=== PATIENT | male | born 1935 | race Caucasian/White ===

== ENCOUNTER 2020-11-14 15:16 | Inpatient (IN) | payer MEDICARE, BC ==
[~2020-11-14] VITALS: Ht 172.7 cm; Wt 81.6 kg
--- NOTE | 2020-11-14 15:20 | NUR ---
BIB [facility], THERE ARE NO ER BEDS AVAILABLE AT THIS TIME. PT IS IN THE EMS GURNEY IN THE HALLWAY.
[2020-11-14] MEDS ORDERED: TAMS-3 PO (15:28)
[2020-11-14] MEDS ORDERED: TELM1TAB6 PO (15:28)
[2020-11-14] MEDS ORDERED: CLOP75TA15 PO (15:28)
[2020-11-14] MEDS ORDERED: METF-440 PO (15:28)
[2020-11-14] MEDS ORDERED: LEVO75TA7 PO (15:28)
[2020-11-14] MEDS ORDERED: HYDR-894 PO (15:28)
[2020-11-14] MEDS ORDERED: CARV12.52 PO (15:28)
[2020-11-14] MEDS ORDERED: ISOS60TA4 PO (15:28)
[2020-11-14] MEDS ORDERED: PRESERVISION (15:28)
[2020-11-14] MEDS ORDERED: ROSU20TA32 PO (15:31)
[2020-11-14] MEDS ORDERED: DONE5TAB34 PO (15:31)
[2020-11-14] MEDS ORDERED: LORAZEPAM 2 MG/1 ML VIAL ONE (15:57)
[2020-11-14 16:23] LABS: HEMATOCRIT 32.1 % (36.7-47.1); HEMOGLOBIN 10.8 g/dL (12.5-16.3); LYMPHOCYTES # (AUTO) 0.2 K/uL (20.0-40.0); LYMPHOCYTES % (AUTO) 1.5 % (20.5-51.5); MEAN CORPUSCULAR HEMOGLOBIN 29.3 uug (23.8-33.4); MEAN CORPUSCULAR HGB CONC 34 g/dL (32.5-36.3); MEAN CORPUSCULAR VOLUME 87.3 fL (73.0-96.2); MONOCYTES # (AUTO) 0.2 K/uL (2.0-10.0); MONOCYTES % (AUTO) 1.4 % (0.0-11.0); NEUTROPHILS # (AUTO) 13.9 K/uL (1.8-8.9); NEUTROPHILS % (AUTO) 97.1 % (38.5-71.5); PLATELET COUNT (AUTO) 250 K/uL (152-348); RED BLOOD CELL COUNT(AUTO) 3.68 MIL/uL (4.06-5.63); WHITE BLOOD COUNT (AUTO) 14.4 K/uL (3.6-10.2)
[2020-11-14 16:31] LABS: CARBON DIOXIDE 25 mmol/L (21-32); CHLORIDE 102 mmol/L (98-107); CREATININE 1.4 mg/dL (0.6-1.3); GLUCOSE 129 mg/dL (74-106); POTASSIUM 3.2 mmol/L (3.5-5.1); UREA NITROGEN, BLOOD 36 mg/dL (7-18)
[2020-11-14] MEDS ORDERED: DEXAMETHASONE SOD PHOSPHATE 4 MG INJ IV ONE (16:45)
--- NOTE | 2020-11-14 16:55 | NUR ---
Son, Trent and granddaughter, Jelly: [phone] (okay to release info per pt). NKA, on dexamethasone, took dose today, not on A/Bx at home. Family requests pt be put on "remdesivir."
[2020-11-14 16:58] LABS: ALANINE AMINOTRANSFERASE 124 U/L (16-63); ALKALINE PHOSPHATASE 56 U/L (50-136); ASPARTATE AMINOTRANSFERASE 85 U/L (15-37); FERRITIN 788 ng/mL (26-388); TOTAL PROTEIN, SERUM 6.6 g/dL (6.4-8.2)
[2020-11-14] MEDS ORDERED: PIPERACILLIN SODIUM/TAZOBACTAM 3.375 G in IV DEXTROSE 5% 50 ML IV ONE (17:00)
[2020-11-14] MEDS ORDERED: POTASSIUM CHLORIDE 20 MEQ TAB.PRT.SR PO ONE ×2 (17:00→17:30)
[2020-11-14] MEDS ORDERED: FUROSEMIDE 20 MG/2 ML VIAL IV ONE (17:15)
[2020-11-14] MEDS ORDERED: ASPIRIN 81 MG TAB.CHEW PO ONE (17:45)
[2020-11-14] MEDS ORDERED: DEXAMETHASONE SOD PHOSPHATE 4 MG INJ ONE ×2 (18:34→21:11)
[2020-11-14] MEDS ORDERED: ASPIRIN 81 MG TAB.CHEW ONE (18:34)
[2020-11-14] MEDS ORDERED: FUROSEMIDE 20 MG/2 ML VIAL ONE ×3 (18:35→22:30)
[2020-11-14] MEDS ORDERED: PIPERACILLIN/TAZOBACTAM/D5W 50 ML IV ONE ×2 (18:36→21:11)
--- NOTE | 2020-11-14 19:05 | NUR ---
K-dur 20 meq not given, duplicate of earlier K-dur order for 40 meq.
[2020-11-14] MEDS ORDERED: DONEPEZIL 5 MG TABLET ONE (21:10)
[2020-11-14] MEDS ORDERED: METFORMIN HCL 500 MG TABLET ONE (21:11)
[2020-11-14] MEDS ORDERED: POTASSIUM CHLORIDE 20 MEQ TAB.PRT.SR ONE (21:11)
[2020-11-14] MEDS: DONEPEZIL 5 MG TABLET PO SCH (21:18)
[2020-11-14] MEDS: METFORMIN HCL 500 MG TABLET PO SCH (21:27)
[2020-11-14] MEDS ORDERED: ENOXAPARIN SODIUM 30 MG/0.3 ML DISP.SYRIN SUBCUT ONE (22:00)
[2020-11-14] MEDS: PIPERACILLIN SODIUM/TAZOBACTAM 4.5 G in IV DEXTROSE 5% 50 ML IV SCH ×2 (22:08→22:45)
--- NOTE | 2020-11-14 22:47 | NUR ---
PHARMACY NOTE; THE 4.5 ZOSYN IVPB WAS NOT ADMINISTERED, THE 3.375 ZOSYN IVPB WAS ADMINISTERED. I MISTAKENLY DOCUMENTED ON THE 4.5 GM ZOSYN IVPB.
--- NOTE | 2020-11-15 01:30 | NUR ---
SBAR REPORT TO TOMMY RN-3RD FLOOR. MRSA ORDERED AND SENT. BELONGINGS LIST COMPLETED.
--- NOTE | 2020-11-15 01:36 | NUR ---
received report from Mat in ER. awaiting patient.
[2020-11-15 02:28] VITALS: BP 165/76
--- NOTE | 2020-11-15 02:30 | NUR ---
faxed nursing catalyst supervisor for abx
--- NOTE | 2020-11-15 02:32 | NUR ---
patient received from ER. no s/s of acute distress noted. v/s stable except BP. Dr. Jimbo Carrillo contacted for BP at 165/76. no new orders per MD. isolation precaution for COVID +. on 4L NC. NSR of tele monitor at this time. will continue to monitor and assess throughout the night.
[2020-11-15] MEDS ORDERED: PIPERACILLIN SODIUM/TAZOBACTAM 3.375 G in IV DEXTROSE 5% 50 ML IV ONE (04:00)
[2020-11-15] MEDS ORDERED: PIPERACILLIN/TAZOBACTAM/D5W 50 ML IV ONE (04:36)
[2020-11-15] MEDS: ACETAMINOPHEN 325 MG TABLET PO PRN (05:06)
--- NOTE | 2020-11-15 05:06 | NUR ---
patient with low grade fever. tylenol administered. will follow up.
[2020-11-15 05:10] VITALS: BP 157/69
[2020-11-15] MEDS: LEVOTHYROXINE SODIUM 75 MCG TABLET PO SCH (06:18)
[2020-11-15 08:31] LABS: BASOPHILS % (AUTO) 0.1 % (0.0-2.0); HEMATOCRIT 33.8 % (36.7-47.1); HEMOGLOBIN 11.6 g/dL (12.5-16.3); LYMPHOCYTES # (AUTO) 0.2 K/uL (20.0-40.0); LYMPHOCYTES % (AUTO) 1.2 % (20.5-51.5); MEAN CORPUSCULAR HEMOGLOBIN 29.7 uug (23.8-33.4); MEAN CORPUSCULAR HGB CONC 34 g/dL (32.5-36.3); MEAN CORPUSCULAR VOLUME 86.9 fL (73.0-96.2); MONOCYTES # (AUTO) 0.3 K/uL (2.0-10.0); MONOCYTES % (AUTO) 1.7 % (0.0-11.0); NEUTROPHILS # (AUTO) 15.5 K/uL (1.8-8.9); PLATELET COUNT (AUTO) 252 K/uL (152-348)
[2020-11-15 09:10] LABS: ALANINE AMINOTRANSFERASE 123 U/L (16-63); ALKALINE PHOSPHATASE 60 U/L (50-136); ASPARTATE AMINOTRANSFERASE 74 U/L (15-37); CARBON DIOXIDE 25 mmol/L (21-32); CHLORIDE 105 mmol/L (98-107); CREATININE 1.6 mg/dL (0.6-1.3); GLUCOSE 198 mg/dL (74-106); POTASSIUM 3.4 mmol/L (3.5-5.1); TOTAL PROTEIN, SERUM 6.9 g/dL (6.4-8.2); UREA NITROGEN, BLOOD 40 mg/dL (7-18)
[2020-11-15] MEDS: DEXAMETHASONE SOD PHOSPHATE 4 MG INJ IV SCH (09:33)
[2020-11-15] MEDS: CARVEDILOL 12.5 MG TABLET PO SCH ×2 (09:33→18:03)
[2020-11-15] MEDS: hydrALAZINE HCL 25 MG TABLET PO SCH ×3 (09:33→18:03)
[2020-11-15] MEDS: TAMSULOSIN HCL 0.4 MG CAP.SR.24H PO SCH ×2 (09:33→18:04)
[2020-11-15] MEDS: CLOPIDOGREL 75 MG TABLET PO SCH (09:34)
[2020-11-15] MEDS: ISOSORBIDE MONONITRATE 60 MG TAB.SR.24H PO SCH (09:34)
[2020-11-15 11:51] VITALS: BP 121/57
[2020-11-15] MEDS: PIPERACILLIN SODIUM/TAZOBACTAM 3.37 G in IV DEXTROSE 5% 100 ML IV SCH ×2 (14:08→20:08)
[2020-11-15 14:54] VITALS: BP 128/60
[2020-11-15] MEDS: DONEPEZIL 5 MG TABLET PO SCH (18:04)
[2020-11-15] MEDS: METFORMIN HCL 500 MG TABLET PO SCH (18:04)
--- NOTE | 2020-11-15 19:30 | NUR ---
Patient was just discharged to his home yesterday from [facility] and readmitted today due to worsening SOB and syncope. He lives locally with his in a single level home with few steps to entrance . Per daughter Jelly Currie [phone], patient was usually ambulatory without assistive device and independent with adl's. Recently has progressive weakness and declined in his mobility and functioning for the past two weeks due to poor endurance. He has no DME , currently on service with [employer] [phone]. Discussed dc planning options - home vs SNF , Jelly states she will discuss both options among their family and will let case mgt know of their decision. Addendum: 11/15/20 at 1945 by PETR BOLANOS CMG Amended: Links added.
[2020-11-15 20:00] VITALS: BP 147/61
[2020-11-16] VITALS: BP 148/63
[2020-11-16 04:00] VITALS: BP 156/91
[2020-11-16] MEDS: PIPERACILLIN SODIUM/TAZOBACTAM 3.37 G in IV DEXTROSE 5% 100 ML IV SCH (05:06)
[2020-11-16] MEDS: LEVOTHYROXINE SODIUM 75 MCG TABLET PO SCH (06:19)
[2020-11-16 08:00] VITALS: BP 121/73
[2020-11-16] MEDS: DEXAMETHASONE SOD PHOSPHATE 4 MG INJ IV SCH (09:49)
[2020-11-16] MEDS: CLOPIDOGREL 75 MG TABLET PO SCH (09:49)
[2020-11-16] MEDS: ISOSORBIDE MONONITRATE 60 MG TAB.SR.24H PO SCH (09:50)
[2020-11-16] MEDS: CARVEDILOL 12.5 MG TABLET PO SCH ×2 (09:50→18:07)
[2020-11-16] MEDS: hydrALAZINE HCL 25 MG TABLET PO SCH ×3 (09:51→18:07)
[2020-11-16] MEDS: TAMSULOSIN HCL 0.4 MG CAP.SR.24H PO SCH ×2 (09:51→18:04)
[2020-11-16] MEDS: AZITHROMYCIN IV 500 MG in IV DEXTROSE 5% 250 ML IV SCH (10:22)
[2020-11-16] MEDS: CEFTRIAXONE 1 G in IV DEXTROSE 5% 50 ML IV SCH (11:47)
[2020-11-16 12:00] VITALS: BP 113/63
--- NOTE | 2020-11-16 12:00 | NUR ---
On O2 @ 4L NC saturating 86-87%, put up on 6L but still saturating 88%. Placed on non-rebreather 10L saturating 93% but denied SOB at this time
[2020-11-16 12:48] LABS: *BILIRUBIN,URIN NEGATIVE (NEGATIVE); *BLOOD, URINE 2+ (NEGATIVE); *CLARITY,URINE CLEAR (CLEAR); *COLOR,URINE YELLOW (YELLOW); *KETONES,URINE NEGATIVE (NEGATIVE); LEUKOCYTE ESTERASE ,URINE NEGATIVE (NEGATIVE); NITRITE, URINE NEGATIVE (NEGATIVE); UGLUCOSE NEGATIVE (NEGATIVE)
[2020-11-16 12:57] LABS: *CREATININE,URINE 109.4 mg/dL (30-125); *URINE TOTAL PROTEIN RANDOM 203.1 mg/dL (<150/24HR)
[2020-11-16 16:00] VITALS: BP 151/64
[2020-11-16] MEDS: DONEPEZIL 5 MG TABLET PO SCH (18:04)
[2020-11-16 18:56] LABS: BACTERIA,URINE RARE /HPF (NONE SEEN); SQUAMOUS EPITHELIAL CELL,UR FEW /HPF (NONE SEEN); URIC ACID CRYSTALS,URINE FEW /HPF (NONE SEEN); URINE AMORPHOUS URATE FEW /HPF; WBC,URINE 0-3 /HPF (0-3)
--- NOTE | 2020-11-16 19:09 | NUR ---
Patient stable throughout shift. On 10L non-rebreather mask, denied SOB or distress at this time. Safety precaution in place.
[2020-11-16 20:00] VITALS: BP 151/57
--- NOTE | 2020-11-17 00:03 | NUR ---
Received patient awake alert and oriented x2-3 with periods of forgetfulness at times. No acute distress noted. No respiratory distress noted. Contact isolation maintained. Covid (+) On 100% non rebreather mask, pulse ox 93%. Needs attended. IVF's infusing well. Patient has left pacemaker. On IV ABT given as scheduled times. Continent of bowel and bladder. No BM noted this shift. Will monitor patient. Kept comfortable.
[2020-11-17 04:00] VITALS: BP 168/82
[2020-11-17] MEDS: LEVOTHYROXINE SODIUM 75 MCG TABLET PO SCH (06:26)
--- NOTE | 2020-11-17 06:47 | NUR ---
End of shift notes: Quiet night. In no respiratory distress. VSS. On continous non-rebreather mask. Voiding well. No complaints presented during shift. All needs attended and met.
[2020-11-17 06:56] LABS: BASOPHILS % (AUTO) 0.1 % (0.0-2.0); HEMATOCRIT 33.8 % (36.7-47.1); HEMOGLOBIN 11.7 g/dL (12.5-16.3); LYMPHOCYTES # (AUTO) 0.3 K/uL (20.0-40.0); LYMPHOCYTES % (AUTO) 2.3 % (20.5-51.5); MEAN CORPUSCULAR HEMOGLOBIN 29.8 uug (23.8-33.4); MEAN CORPUSCULAR HGB CONC 35 g/dL (32.5-36.3); MEAN CORPUSCULAR VOLUME 86.1 fL (73.0-96.2); MONOCYTES # (AUTO) 0.5 K/uL (2.0-10.0); MONOCYTES % (AUTO) 4.3 % (0.0-11.0); NEUTROPHILS # (AUTO) 10.7 K/uL (1.8-8.9); NEUTROPHILS % (AUTO) 93.3 % (38.5-71.5); PLATELET COUNT (AUTO) 307 K/uL (152-348); RED BLOOD CELL COUNT(AUTO) 3.92 MIL/uL (4.06-5.63); WHITE BLOOD COUNT (AUTO) 11.5 K/uL (3.6-10.2)
[2020-11-17 07:44] LABS: ALANINE AMINOTRANSFERASE 281 U/L (16-63); ALKALINE PHOSPHATASE 63 U/L (50-136); ASPARTATE AMINOTRANSFERASE 199 U/L (15-37); BILIRUBIN,TOTAL 0.7 mg/dL (0.2-1.0); CARBON DIOXIDE 28 mmol/L (21-32); CHLORIDE 103 mmol/L (98-107); CREATININE 1.4 mg/dL (0.6-1.3); FERRITIN 1974 ng/mL (26-388); GLUCOSE 183 mg/dL (74-106); LACTATE DEHYDROGENASE 614 U/L (85-227); PHOSPHOROUS 3.3 mg/dL (2.5-4.9); POTASSIUM 3.3 mmol/L (3.5-5.1); TOTAL PROTEIN, SERUM 6.7 g/dL (6.4-8.2); UREA NITROGEN, BLOOD 41 mg/dL (7-18)
[2020-11-17 07:59] LABS: CREATINE KINASE, TOTAL 94 U/L (39-308)
[2020-11-17] MEDS ORDERED: POTASSIUM CHLORIDE 20 MEQ TAB.PRT.SR PO ONE (09:30)
[2020-11-17] MEDS: DEXAMETHASONE SOD PHOSPHATE 4 MG INJ IV SCH (09:32)
[2020-11-17] MEDS: hydrALAZINE HCL 25 MG TABLET PO SCH ×3 (09:33→16:56)
[2020-11-17] MEDS: CLOPIDOGREL 75 MG TABLET PO SCH (09:33)
[2020-11-17] MEDS: CARVEDILOL 12.5 MG TABLET PO SCH ×2 (09:33→16:56)
[2020-11-17] MEDS: ISOSORBIDE MONONITRATE 60 MG TAB.SR.24H PO SCH (09:34)
[2020-11-17] MEDS: AZITHROMYCIN IV 500 MG in IV DEXTROSE 5% 250 ML IV SCH (10:36)
[2020-11-17] MEDS: CEFTRIAXONE 1 G in IV DEXTROSE 5% 50 ML IV SCH (12:11)
[2020-11-17 12:14] VITALS: BP 124/58
[2020-11-17 14:28] LABS: THYROID STIMULATING HORMONE 0.164 mIU/mL (0.358-3.740)
[2020-11-17 16:00] VITALS: BP 126/63
[2020-11-17] MEDS: DONEPEZIL 5 MG TABLET PO SCH (17:03)
[2020-11-17 20:00] VITALS: BP 128/58
--- NOTE | 2020-11-17 20:16 | NUR ---
patient in bed AOx, on non rebreather 10L saturating 91-92%, denied SOB or any distress. On 5-6L NC, saturating 84-85%. Had a mucoid, white cloudy bowel movement, sent to lab for cdiff per MD. Safety precaution in place
[2020-11-17] MEDS: TAMSULOSIN HCL 0.4 MG CAP.SR.24H PO SCH (21:27)
--- NOTE | 2020-11-17 21:57 | NUR ---
patient placed on 15L non rebreather mask saturation at 92% at this time. aaox3. able to state name, , time, president and verbalize needs at this time. all medications administered without associated side effects. IV in tact and patent. safety precautions provided. bed in lowest position, side rails up x2, bed alarm on. will continue to monitor and assess throughout the night.
--- NOTE | 2020-11-17 21:57 | NUR ---
Rn - Patient was received a/ox3, verbally responsive, V/S stable except SPO2 @ 88% on 6/liter oxygen none rebreather mask. Increased oxygen to 10/liter and noted increased to 92%. No visual sign of difficulty breathing and calm. On continue Atb therapy Rocephin 1gm with Dextrose 5% on 50ml every 24hrs and Zithromax IV 500mg q/24hrs. Administered routine due medication and tolerated well. Will continue close monitor and anticipate changes.
[2020-11-18 04:00] VITALS: BP 177/80
--- NOTE | 2020-11-18 04:20 | NUR ---
Priscilla islas np ordered clonidine 0.1 mg q8h for SBP >160 patient BP currently >160. will carry out and follow up with patient.
[2020-11-18] MEDS ORDERED: CLONIDINE HCL 0.1 MG TABLET PO PRN (04:30)
--- NOTE | 2020-11-18 05:25 | NUR ---
patient resting comfortably. aaox3. able to verbalize needs at this time. on 15L nonrebreather. NSR on tele monitor. safety precautions provided. bed in lowest position, side rails up x2, and bed alarm on. urinal next to bed side. all needs med and medications administered without any ASE. will continue to monitor and assess until morning endorsement.
[2020-11-18] MEDS: LEVOTHYROXINE SODIUM 50 MCG TABLET PO SCH (06:07)
--- NOTE | 2020-11-18 08:00 | NUR ---
Awake, alert, oriented x 3, on moderate high back rest, off O2 with O2 sat of 85%. Placed on O2 4-5l/NC with O2 sat of 92-94%
[2020-11-18] MEDS: DEXAMETHASONE SOD PHOSPHATE 4 MG INJ IV SCH (09:50)
[2020-11-18] MEDS: hydrALAZINE HCL 25 MG TABLET PO SCH ×3 (09:51→17:40)
[2020-11-18] MEDS: CLOPIDOGREL 75 MG TABLET PO SCH (09:51)
[2020-11-18] MEDS: CARVEDILOL 12.5 MG TABLET PO SCH ×2 (09:51→17:40)
[2020-11-18] MEDS: ISOSORBIDE MONONITRATE 60 MG TAB.SR.24H PO SCH (09:51)
[2020-11-18] MEDS: AZITHROMYCIN IV 500 MG in IV DEXTROSE 5% 250 ML IV SCH (09:52)
[2020-11-18 11:53] VITALS: BP 113/71
[2020-11-18] MEDS: CEFTRIAXONE 1 G in IV DEXTROSE 5% 50 ML IV SCH (12:16)
--- NOTE | 2020-11-18 14:25 | NUR ---
O2 sat of 85% on 5L/NC, placed on 10L/Mask with O2 sat of 94%
[2020-11-18 15:41] VITALS: BP 155/76
--- NOTE | 2020-11-18 16:37 | NUR ---
Patient removing mask with O2 sat of 84%, placed back on 10L/mask and reminded not to remove it.
[2020-11-18 17:27] LABS: A/G RATIO 0.6 (0.7-1.7); ALBUMIN 2.3 g/dL (2.9-4.4); ALPHA-1-GLOBULIN 0.4 g/dL (0.0-0.4); ALPHA-2-GLOBULIN 1.4 g/dL (0.4-1.0); GAMMA GLOBULIN 0.8 g/dL (0.4-1.8); GLOBULIN, TOTAL 3.6 g/dL (2.2-3.9); M-SPIKE Not Observed g/dL (Not Observed)
[2020-11-18] MEDS: DONEPEZIL 5 MG TABLET PO SCH (17:40)
--- NOTE | 2020-11-18 18:26 | NUR ---
Placed back on 10L/mask after dinner. Repositioned comfortably
[2020-11-18] MEDS: TAMSULOSIN HCL 0.4 MG CAP.SR.24H PO SCH ×2 (20:59→21:31)
[2020-11-18 21:42] VITALS: BP 158/75
[2020-11-18] MEDS: hydrALAZINE HCL 25 MG TABLET PO PRN (21:54)
[2020-11-19] MEDS: hydrALAZINE HCL 25 MG TABLET PO PRN (05:38)
[2020-11-19 06:00] VITALS: BP 180/83
[2020-11-19] MEDS: LEVOTHYROXINE SODIUM 50 MCG TABLET PO SCH (06:12)
--- NOTE | 2020-11-19 06:29 | NUR ---
patient aaox3. pleasant to speak with and intermittently sleeping throughout the night. on mask at 10L sat at 94%. safety precautions provided. all needs met. will continue to monitor and endorse to morning shift. patient kept NPO since midnight for Liver US. will continue to monitor and assess until morning endorsement
[2020-11-19 08:37] LABS: BASOPHILS % (AUTO) 0.1 % (0.0-2.0); EOSINOPHILS % (AUTO) 0.1 % (0.0-7.0); HEMATOCRIT 35.1 % (36.7-47.1); HEMOGLOBIN 12.3 g/dL (12.5-16.3); LYMPHOCYTES # (AUTO) 0.4 K/uL (20.0-40.0); LYMPHOCYTES % (AUTO) 4.4 % (20.5-51.5); MEAN CORPUSCULAR HEMOGLOBIN 30.3 uug (23.8-33.4); MEAN CORPUSCULAR HGB CONC 35 g/dL (32.5-36.3); MEAN CORPUSCULAR VOLUME 86.6 fL (73.0-96.2); MONOCYTES # (AUTO) 0.4 K/uL (2.0-10.0); MONOCYTES % (AUTO) 4.2 % (0.0-11.0); NEUTROPHILS # (AUTO) 8.7 K/uL (1.8-8.9); NEUTROPHILS % (AUTO) 91.2 % (38.5-71.5); PLATELET COUNT (AUTO) 305 K/uL (152-348); RED BLOOD CELL COUNT(AUTO) 4.05 MIL/uL (4.06-5.63); WHITE BLOOD COUNT (AUTO) 9.6 K/uL (3.6-10.2)
[2020-11-19 09:24] LABS: BILIRUBIN,TOTAL 0.4 mg/dL (0.2-1.0); CREATININE 1.3 mg/dL (0.6-1.3); MAGNESIUM 2.8 mg/dL (1.8-2.4); PHOSPHOROUS 3.1 mg/dL (2.5-4.9); POTASSIUM 3.4 mmol/L (3.5-5.1); TOTAL PROTEIN, SERUM 6.3 g/dL (6.4-8.2)
[2020-11-19] MEDS: CARVEDILOL 12.5 MG TABLET PO SCH ×2 (10:03→17:39)
[2020-11-19] MEDS: DEXAMETHASONE SOD PHOSPHATE 4 MG INJ IV SCH (10:03)
[2020-11-19] MEDS: hydrALAZINE HCL 25 MG TABLET PO SCH ×3 (10:04→17:40)
[2020-11-19] MEDS: CLOPIDOGREL 75 MG TABLET PO SCH (10:04)
[2020-11-19] MEDS: AZITHROMYCIN IV 500 MG in IV DEXTROSE 5% 250 ML IV SCH (10:04)
[2020-11-19] MEDS: ISOSORBIDE MONONITRATE 60 MG TAB.SR.24H PO SCH (10:04)
[2020-11-19 11:00] VITALS: BP 120/70
[2020-11-19] MEDS: POTASSIUM CHLORIDE 50 ML IV SCH ×2 (11:46→17:13)
[2020-11-19] MEDS: CEFTRIAXONE 1 G in IV DEXTROSE 5% 50 ML IV SCH (13:40)
[2020-11-19] MEDS ORDERED: REMDESIVIR (CHARGED) 200 MG in IV NORMAL SALINE 210 ML IV ONE (14:30)
[2020-11-19 15:00] VITALS: BP 157/72
[2020-11-19] MEDS ORDERED: HYDROCODONE/APAP 5-325MG TABLET PO PRN (17:15)
[2020-11-19] MEDS: DONEPEZIL 5 MG TABLET PO SCH (17:40)
[2020-11-19] MEDS ORDERED: REMDESIVIR (CHARGED) 100 MG in IV NORMAL SALINE 230 ML IV SCH (18:15)
--- NOTE | 2020-11-19 18:57 | NUR ---
Pt. continue started rendesivir treatment. tolerated well. Replace potassium 3.4 20meq IV. will continue monitor Addendum: 11/19/20 at 1904 by MONTANA GREEN RN RN d/c theeivir
--- NOTE | 2020-11-19 19:30 | NUR ---
RECEIVED PT AWAKE, ALERT AND ORIENTEDX3. PT IN NO ACUTE DISTRESS. IV INTACT. SAFETY AND COMFORT PROVIDED. PT ON SIMPLE MASK 10 L. WILL CONTINUE TO MONITOR.
[2020-11-19 20:14] VITALS: BP 112/73
[2020-11-19] MEDS: TAMSULOSIN HCL 0.4 MG CAP.SR.24H PO SCH (20:27)
[2020-11-19] MEDS: ACETAMINOPHEN 325 MG TABLET PO PRN (20:28)
[2020-11-19] MEDS: ENOXAPARIN SODIUM 40 MG/0.4 ML DISP.SYRIN SQ SCH (20:28)
--- NOTE | 2020-11-19 22:00 | NUR ---
TYLENOL PRN GIVEN FOR PT.PT TOLERATED IT WELL.
[2020-11-20 06:03] VITALS: BP 151/84
[2020-11-20] MEDS: LEVOTHYROXINE SODIUM 50 MCG TABLET PO SCH (06:12)
--- NOTE | 2020-11-20 06:18 | NUR ---
PT SLEPT INTERMITTENTLY. PT IN NO ACUTE DISTRESS. IV INTACT. PRESCRIBED MEDICATION GIVEN AND PT TOLERATED IT WELL. SAFETY AND COMFORT PROVIDED.PT ON SIMPLE MASK 10L. WILL ENDORSE TO INCOMING NURSE FOR CONTINUITY OF CARE.
[2020-11-20 08:03] LABS: BILIRUBIN,TOTAL 0.5 mg/dL (0.2-1.0); CREATININE 1.3 mg/dL (0.6-1.3); MAGNESIUM 2.8 mg/dL (1.8-2.4); PHOSPHOROUS 3.2 mg/dL (2.5-4.9); POTASSIUM 3.8 mmol/L (3.5-5.1); TOTAL PROTEIN, SERUM 6.4 g/dL (6.4-8.2)
[2020-11-20] MEDS: CLOPIDOGREL 75 MG TABLET PO SCH (08:50)
[2020-11-20] MEDS: ISOSORBIDE MONONITRATE 60 MG TAB.SR.24H PO SCH (08:51)
[2020-11-20] MEDS: DEXAMETHASONE SOD PHOSPHATE 4 MG INJ IV SCH (08:52)
[2020-11-20] MEDS: hydrALAZINE HCL 25 MG TABLET PO SCH ×3 (08:52→17:49)
[2020-11-20] MEDS: CARVEDILOL 12.5 MG TABLET PO SCH ×2 (08:53→17:16)
[2020-11-20] MEDS ORDERED: AZITHROMYCIN 250 MG TABLET PO SCH (10:00)
[2020-11-20] MEDS: CEFTRIAXONE 1 G in IV DEXTROSE 5% 50 ML IV SCH (10:20)
[2020-11-20 12:00] VITALS: BP 113/53
--- NOTE | 2020-11-20 12:55 | NUR ---
KAREN NEPHRO ACCOUNT CONTACT ASSOCIATE HERE TO SEE PATIENT WITH NEW ORDERS AND NOTED
[2020-11-20 13:08] VITALS: BP 112/53
[2020-11-20] MEDS ORDERED: REMDESIVIR (CHARGED) 100 MG in IV NORMAL SALINE 230 ML IV SCH ×4 (14:30)
[2020-11-20 15:34] LABS: BASOPHILS % (AUTO) 0.1 % (0.0-2.0); EOSINOPHILS % (AUTO) 0.3 % (0.0-7.0); HEMATOCRIT 38.3 % (36.7-47.1); HEMOGLOBIN 12.6 g/dL (12.5-16.3); LYMPHOCYTES # (AUTO) 0.6 K/uL (20.0-40.0); LYMPHOCYTES % (AUTO) 5.9 % (20.5-51.5); MEAN CORPUSCULAR HEMOGLOBIN 29.2 uug (23.8-33.4); MEAN CORPUSCULAR HGB CONC 33 g/dL (32.5-36.3); MEAN CORPUSCULAR VOLUME 88.6 fL (73.0-96.2); MONOCYTES # (AUTO) 0.2 K/uL (2.0-10.0); MONOCYTES % (AUTO) 2.1 % (0.0-11.0); NEUTROPHILS # (AUTO) 9.9 K/uL (1.8-8.9); NEUTROPHILS % (AUTO) 91.6 % (38.5-71.5); PLATELET COUNT (AUTO) 274 K/uL (152-348); RED BLOOD CELL COUNT(AUTO) 4.32 MIL/uL (4.06-5.63); WHITE BLOOD COUNT (AUTO) 10.8 K/uL (3.6-10.2)
--- NOTE | 2020-11-20 15:35 | NUR ---
RECEIVED AN ORDER FROM DR RODERICK SNOWDEN UNABLE TO CARRY OUT RE ASSESSMENT NOTE SEPSIS AND REASSESSMENT AFTER FLUID SPOKE WITH DR VAUGHN AND HE STATED TO DISREGARD THE ORDER AT THIS TIME Addendum: 11/20/20 at 1844 by CAITY DIAZ RN ERROR IN CHARTING WRONG PATIENT
[2020-11-20 16:00] VITALS: BP 126/74
--- NOTE | 2020-11-20 16:00 | NUR ---
SPOKE WITH DR RODY MIJARES [facility] STATED TO CALL THE LAB AND A FIND OUT WHEN THE PLASMA WILL BE READY CALLED KALEE AT THE LAB AND SHE STATED THAT THEY DO NOT HAVE THE CORRECT ORDER AND ANY WAYS THE PLASMA COMES FROM THE [facility] SO I CALLED AND NOTIFIED DR MAYES STATED WILL GO TO THE LAB AND FIND OUT HOW TO CORRECTLY ORDER THIS.
[2020-11-20] MEDS: DONEPEZIL 5 MG TABLET PO SCH (17:17)
--- NOTE | 2020-11-20 18:00 | NUR ---
REMAIN ON O2 BY MASK AT 10L/M WITH NO SHORTNESS OF BREATH AT THIS TIME MADE COMFORTABLE WILL CONTINUE TO OBSERVE.
[2020-11-20 20:10] VITALS: BP 150/74
[2020-11-20] MEDS: TAMSULOSIN HCL 0.4 MG CAP.SR.24H PO SCH (21:03)
[2020-11-20] MEDS: ENOXAPARIN SODIUM 40 MG/0.4 ML DISP.SYRIN SQ SCH (21:25)
[2020-11-21 04:20] VITALS: BP 177/82
--- NOTE | 2020-11-21 04:44 | NUR ---
PATIENT ALERT ORIENTED, NO SOB NO CHEST PAIN, PATIENT HAS NO COMPLAIN OF PAIN. PATIENT ON 10 LITERS MASK SATURATING 93% AND UP. PATIENT WAS KEPT CLEAN AND DRY, CONT TO MONITOR.
[2020-11-21] MEDS: LEVOTHYROXINE SODIUM 50 MCG TABLET PO SCH (06:48)
[2020-11-21 08:00] VITALS: BP 187/82
--- NOTE | 2020-11-21 08:00 | NUR ---
Awake, alert, oriented x 4, on moderate high back rest. O2 at 10L/mask. Midline LUE intact.
--- NOTE | 2020-11-21 11:00 | NUR ---
O2 at 10L/mask with O2 sat of 97%, decreased to 8L with O2 sat of 96%, titrated to 4L/NC, will monitor
[2020-11-21] MEDS: DEXAMETHASONE SOD PHOSPHATE 4 MG INJ IV SCH (11:17)
[2020-11-21] MEDS: CLOPIDOGREL 75 MG TABLET PO SCH (11:18)
[2020-11-21] MEDS: ISOSORBIDE MONONITRATE 60 MG TAB.SR.24H PO SCH (11:28)
[2020-11-21] MEDS: CARVEDILOL 12.5 MG TABLET PO SCH ×2 (11:28→17:53)
[2020-11-21] MEDS: hydrALAZINE HCL 25 MG TABLET PO SCH ×3 (11:28→17:53)
[2020-11-21 11:29] LABS: CREATININE 1.3 mg/dL (0.6-1.3); MAGNESIUM 2.7 mg/dL (1.8-2.4); PHOSPHOROUS 2.7 mg/dL (2.5-4.9); POTASSIUM 3.8 mmol/L (3.5-5.1)
[2020-11-21] MEDS: CEFTRIAXONE 1 G in IV DEXTROSE 5% 50 ML IV SCH (11:29)
[2020-11-21 11:49] LABS: BILIRUBIN,DIRECT 0.1 mg/dL (0.0-0.2); BILIRUBIN,TOTAL 0.5 mg/dL (0.2-1.0); TOTAL PROTEIN, SERUM 6.2 g/dL (6.4-8.2)
[2020-11-21 12:00] VITALS: BP 129/71
--- NOTE | 2020-11-21 13:00 | NUR ---
O2 sat 90% on 4L/NC, Placed back to 10L/mask
[2020-11-21] MEDS: AMLODIPINE 5 MG TABLET PO SCH (14:02)
--- NOTE | 2020-11-21 15:05 | NUR ---
Patient removing mask, reminded not to remove. O2 sat 94% on 10L/mask
[2020-11-21 16:00] VITALS: BP 99/68
[2020-11-21] MEDS: DONEPEZIL 5 MG TABLET PO SCH (17:53)
--- NOTE | 2020-11-21 19:11 | NUR ---
With poor appetite. Refused to eat meal again. Resting comfortably. O2 at 10L/mask
[2020-11-21 20:38] VITALS: BP 143/54
[2020-11-21] MEDS: TAMSULOSIN HCL 0.4 MG CAP.SR.24H PO SCH (22:22)
[2020-11-21] MEDS: ENOXAPARIN SODIUM 40 MG/0.4 ML DISP.SYRIN SQ SCH (22:24)
[2020-11-22] VITALS (7 sets, daily range): BP systolic 100–158; BP diastolic 44–72
[2020-11-22] MEDS: LEVOTHYROXINE SODIUM 50 MCG TABLET PO SCH ×2 (06:47→22:00)
[2020-11-22] MEDS: DEXAMETHASONE SOD PHOSPHATE 4 MG INJ IV SCH (09:26)
[2020-11-22] MEDS: hydrALAZINE HCL 25 MG TABLET PO SCH ×3 (09:26→17:04)
[2020-11-22] MEDS: ISOSORBIDE MONONITRATE 60 MG TAB.SR.24H PO SCH (09:27)
[2020-11-22] MEDS: CARVEDILOL 12.5 MG TABLET PO SCH ×2 (09:27→17:21)
[2020-11-22] MEDS: CLOPIDOGREL 75 MG TABLET PO SCH (09:27)
[2020-11-22] MEDS: AMLODIPINE 5 MG TABLET PO SCH (09:27)
[2020-11-22 10:05] LABS: EOSINOPHILS % (AUTO) 0.3 % (0.0-7.0); HEMOGLOBIN 12.7 g/dL (12.5-16.3); LYMPHOCYTES # (AUTO) 0.5 K/uL (20.0-40.0); MEAN CORPUSCULAR HEMOGLOBIN 29.2 uug (23.8-33.4); MEAN CORPUSCULAR HGB CONC 34 g/dL (32.5-36.3); MEAN CORPUSCULAR VOLUME 87.2 fL (73.0-96.2); MONOCYTES # (AUTO) 0.3 K/uL (2.0-10.0); MONOCYTES % (AUTO) 2.1 % (0.0-11.0); NEUTROPHILS # (AUTO) 11.8 K/uL (1.8-8.9); NEUTROPHILS % (AUTO) 93.6 % (38.5-71.5); PLATELET COUNT (AUTO) 335 K/uL (152-348); RED BLOOD CELL COUNT(AUTO) 4.35 MIL/uL (4.06-5.63); WHITE BLOOD COUNT (AUTO) 12.6 K/uL (3.6-10.2)
[2020-11-22 10:14] LABS: BILIRUBIN,TOTAL 0.6 mg/dL (0.2-1.0); CREATININE 1.2 mg/dL (0.6-1.3); MAGNESIUM 2.7 mg/dL (1.8-2.4); PHOSPHOROUS 3.4 mg/dL (2.5-4.9); POTASSIUM 3.9 mmol/L (3.5-5.1); TOTAL PROTEIN, SERUM 6.6 g/dL (6.4-8.2)
[2020-11-22] MEDS: CEFTRIAXONE 1 G in IV DEXTROSE 5% 50 ML IV SCH (10:44)
--- NOTE | 2020-11-22 11:00 | NUR ---
PATIENT AOX2, ABLE TO REORIENT PATIENT NEEDED. DENIES CHEST PAIN OR SOB, SAFETY AND FALL PREVENTION IN PLACE. CALL LIGHT IN REACH. ALL NEEDS MET. WILL CONTINUE TO MONITOR.
--- NOTE | 2020-11-22 11:00 | NUR ---
AMA THE NURSE WAS SENT TO THE ER BECAUSE OF FEELING SICK. I WAS ASSIGNED TO TAKE OVER THIS PATIENT AND ANOTHER PATIENT OF HERS MAKING TOTAL OF 7 PATIENTS ALL TELY BUT ONE. I DID NOT GET NURSE TO NURSE REPORT. I WAS ABLE TO READ HISTORY AND FILL IN SOME OF THE BLANKS IN ORDER TO TAKE CARE OF THIS PATIENT.
[2020-11-22] MEDS: DONEPEZIL 5 MG TABLET PO SCH (17:21)
[2020-11-22] MEDS ORDERED: REMDESIVIR (CHARGED) 200 MG in IV NORMAL SALINE 210 ML IV ONE (18:00)
--- NOTE | 2020-11-22 19:30 | NUR ---
RECEIVED PT AWAKE ,ALERT AND ORIENTEDX4. PT ON HIGH BACK REST WITH O2 AT 10L/MASK. PT IN NO ACUTE DISTRESS. MIDLINE LEFT UPPER ARM INTACT. SAFETY AND COMFORT PROVIDED. WILL CONTINUE TO MONITOR.
[2020-11-22] MEDS: TAMSULOSIN HCL 0.4 MG CAP.SR.24H PO SCH (20:35)
[2020-11-22] MEDS: ENOXAPARIN SODIUM 40 MG/0.4 ML DISP.SYRIN SQ SCH (20:36)
--- NOTE | 2020-11-22 21:30 | NUR ---
ELIZABETH GRANDDAUGHTER CALLED FOR AN UPDATE REGARDING HIS GRANDFATHER. PT IN NO ACUTE DISTRESS.
--- NOTE | 2020-11-22 21:40 | NUR ---
REMDESIVIR DONE. PT TOLERATED IT WELL. PT VITAL SIGNS WITHIN NORMAL LIMIT. SAFETY AND COMFORT PROVIDED. WILL CONTINUE TO MONITOR.
[2020-11-22] MEDS: ACETAMINOPHEN 325 MG TABLET PO PRN (22:00)
[2020-11-23] VITALS (10 sets, daily range): BP systolic 129–165; BP diastolic 61–81
[2020-11-23] MEDS: hydrALAZINE HCL 25 MG TABLET PO PRN (05:45)
[2020-11-23] MEDS: LEVOTHYROXINE SODIUM 50 MCG TABLET PO SCH (06:06)
--- NOTE | 2020-11-23 06:18 | NUR ---
PT SLEPT INTERMITTENTLY. PT IN NO ACUTE DISTRESS. PT IV INTACT. PT ON 10L FACEMASK. PRESCRIBED MEDICATION GIVEN AND PT TOLERATED IT WELL. PT GIVEN TYLENOL AT 2200H PER PT REQUESTED. PT TOLERATED IT WELL. REMESIVIR GIVEN AND NO ADVERSE EFFECT NOTED. SAFETY AND COMFORT PROVIDED. ALL NEEDS ARE MET. WILL ENDORSE TO INCOMING NURSE FOR CONTINUITY OF CARE.
[2020-11-23 08:07] LABS: BASOPHILS % (AUTO) 0.1 % (0.0-2.0); EOSINOPHILS % (AUTO) 0.1 % (0.0-7.0); HEMATOCRIT 36.1 % (36.7-47.1); HEMOGLOBIN 12.4 g/dL (12.5-16.3); LYMPHOCYTES # (AUTO) 0.5 K/uL (20.0-40.0); LYMPHOCYTES % (AUTO) 4.1 % (20.5-51.5); MEAN CORPUSCULAR HEMOGLOBIN 29.8 uug (23.8-33.4); MEAN CORPUSCULAR HGB CONC 34 g/dL (32.5-36.3); MEAN CORPUSCULAR VOLUME 86.6 fL (73.0-96.2); MONOCYTES # (AUTO) 0.3 K/uL (2.0-10.0); MONOCYTES % (AUTO) 2.1 % (0.0-11.0); NEUTROPHILS # (AUTO) 11.2 K/uL (1.8-8.9); NEUTROPHILS % (AUTO) 93.6 % (38.5-71.5); PLATELET COUNT (AUTO) 321 K/uL (152-348); RED BLOOD CELL COUNT(AUTO) 4.17 MIL/uL (4.06-5.63); WHITE BLOOD COUNT (AUTO) 11.9 K/uL (3.6-10.2)
[2020-11-23 08:20] LABS: BILIRUBIN,DIRECT 0.2 mg/dL (0.0-0.2); BILIRUBIN,TOTAL 0.3 mg/dL (0.2-1.0); CREATININE 1.3 mg/dL (0.6-1.3); POTASSIUM 4.6 mmol/L (3.5-5.1); TOTAL PROTEIN, SERUM 6.4 g/dL (6.4-8.2)
[2020-11-23] MEDS: CLOPIDOGREL 75 MG TABLET PO SCH (09:09)
[2020-11-23] MEDS: AMLODIPINE 5 MG TABLET PO SCH ×2 (09:09→20:19)
[2020-11-23] MEDS: hydrALAZINE HCL 25 MG TABLET PO SCH ×3 (09:09→16:17)
[2020-11-23] MEDS: ISOSORBIDE MONONITRATE 60 MG TAB.SR.24H PO SCH (09:09)
[2020-11-23] MEDS: DEXAMETHASONE SOD PHOSPHATE 4 MG INJ IV SCH (09:10)
[2020-11-23] MEDS: CARVEDILOL 12.5 MG TABLET PO SCH ×2 (09:10→16:17)
--- NOTE | 2020-11-23 10:15 | NUR ---
PATIENT SEEN AND EXAMINED BY DR MAYES WITH NEW ORDERS AND NOTED
[2020-11-23] MEDS: CEFTRIAXONE 1 G in IV DEXTROSE 5% 50 ML IV SCH (10:28)
[2020-11-23] MEDS: REMDESIVIR (CHARGED) 100 MG in IV NORMAL SALINE 230 ML IV SCH (17:30)
[2020-11-23] MEDS: DONEPEZIL 5 MG TABLET PO SCH (18:20)
--- NOTE | 2020-11-23 18:39 | NUR ---
REMZEDIVIR SARTED ORDERED WITH NO ADVERSE OR ALLERGIC REACTIONS AT THIS TIME
--- NOTE | 2020-11-23 19:30 | NUR ---
RECEIVED PT AWAKE ,ALERT AND ORIENTEDX4. PT ON HIGH BACK REST WITH O2 AT 10L/MASK. PT IN NO ACUTE DISTRESS. MIDLINE LEFT UPPER ARM INTACT. PT TOLERATED REMDESIVIR. SAFETY AND COMFORT PROVIDED. WILL CONTINUE TO MONITOR.
[2020-11-23] MEDS: TAMSULOSIN HCL 0.4 MG CAP.SR.24H PO SCH (20:16)
[2020-11-23] MEDS: ENOXAPARIN SODIUM 40 MG/0.4 ML DISP.SYRIN SQ SCH (20:51)
[2020-11-23] MEDS: ACETAMINOPHEN 325 MG TABLET PO PRN (22:00)
[2020-11-24] VITALS (8 sets, daily range): BP systolic 115–169; BP diastolic 57–86
[2020-11-24] MEDS: hydrALAZINE HCL 25 MG TABLET PO PRN (05:00)
[2020-11-24] MEDS: LEVOTHYROXINE SODIUM 50 MCG TABLET PO SCH (06:27)
--- NOTE | 2020-11-24 06:35 | NUR ---
PT SLEPT COMFORTABLY. PT IN NO ACUTE DISTRESS. IV INTACT. PT ON 10L SIMPLE MASK. PT GIVEN TYLENOL PRN AT 2200H PER PT REQUEST. PT TOLERATED IT WELL. SAFETY AND COMFORT PROVIDED. WILL ENDORSE TO INCOMING NURSE FOR CONTINUITY OF CARE.
[2020-11-24] MEDS: AMLODIPINE 5 MG TABLET PO SCH (08:29)
[2020-11-24] MEDS: ISOSORBIDE MONONITRATE 60 MG TAB.SR.24H PO SCH (08:29)
[2020-11-24] MEDS: CARVEDILOL 12.5 MG TABLET PO SCH ×2 (08:30→16:27)
[2020-11-24] MEDS: hydrALAZINE HCL 25 MG TABLET PO SCH ×3 (08:30→16:27)
[2020-11-24] MEDS: CLOPIDOGREL 75 MG TABLET PO SCH (08:30)
--- NOTE | 2020-11-24 09:00 | NUR ---
RECEIVED PATIENT IN BED AWAKE ALERT AND ORIENTED BUT IS HARD OF HEARING REMAIN ON O2 AT 10/L PER MIN WITH NO SHORTNESS OF BREATH AT THIS TIME ON COVID ISOLATION AND PRECAUTIONS CALL LIGHTS AND PERSONAL BELONGINGS ARE WITHIN EASY REACH AT THIS TIME WILL CONTINUE TO OBSERVE AND PROVIDE COMFORT.
[2020-11-24 09:09] LABS: BASOPHILS % (AUTO) 0.1 % (0.0-2.0); EOSINOPHILS % (AUTO) 0.1 % (0.0-7.0); HEMATOCRIT 34.1 % (36.7-47.1); HEMOGLOBIN 12.1 g/dL (12.5-16.3); LYMPHOCYTES # (AUTO) 0.5 K/uL (20.0-40.0); LYMPHOCYTES % (AUTO) 4.7 % (20.5-51.5); MEAN CORPUSCULAR HEMOGLOBIN 30.4 uug (23.8-33.4); MEAN CORPUSCULAR HGB CONC 35 g/dL (32.5-36.3); MEAN CORPUSCULAR VOLUME 86.1 fL (73.0-96.2); MONOCYTES # (AUTO) 0.3 K/uL (2.0-10.0); MONOCYTES % (AUTO) 2.7 % (0.0-11.0); NEUTROPHILS # (AUTO) 8.8 K/uL (1.8-8.9); NEUTROPHILS % (AUTO) 92.4 % (38.5-71.5); PLATELET COUNT (AUTO) 257 K/uL (152-348); RED BLOOD CELL COUNT(AUTO) 3.96 MIL/uL (4.06-5.63); WHITE BLOOD COUNT (AUTO) 9.5 K/uL (3.6-10.2)
[2020-11-24 09:31] LABS: BILIRUBIN,DIRECT 0.2 mg/dL (0.0-0.2); BILIRUBIN,TOTAL 0.5 mg/dL (0.2-1.0); CREATININE 1.2 mg/dL (0.6-1.3); POTASSIUM 3.9 mmol/L (3.5-5.1); TOTAL PROTEIN, SERUM 5.9 g/dL (6.4-8.2)
[2020-11-24] MEDS: CEFTRIAXONE 1 G in IV DEXTROSE 5% 50 ML IV SCH (11:25)
--- NOTE | 2020-11-24 13:00 | NUR ---
PATIENT SEEN AND EVALUATED BY THE PHYSICAL THERAPY ORDERED ABLE TO AMBULATE ABOUT 4 FEET AND BACK INTO BED WITH B/P SYSTOLIC IN THE 90S NOT SUSTAINED BECAME NORMAL SOON HE GOT BACK INTO BED.MD AWARE WITH NO NEW ORDERS AT THIS TIME
[2020-11-24] MEDS: DONEPEZIL 5 MG TABLET PO SCH (17:23)
[2020-11-24] MEDS: REMDESIVIR (CHARGED) 100 MG in IV NORMAL SALINE 230 ML IV SCH (17:47)
--- NOTE | 2020-11-24 17:47 | NUR ---
REMDEZIVIR INFUSSION STARTED AT THIS TIME PATIENT IS ALERT ORIENTED WITH O2 AT 10L/M WITH NO SOB VITALS CHECKED AND RECORDED WILL CONTINUE TO OBSERVE
--- NOTE | 2020-11-24 18:00 | NUR ---
NO ADVERSE OR ALLERGIC REACTIONS AT THIS TIME REMDEZIVIR INFUSING ORDERED
[2020-11-24] MEDS: TAMSULOSIN HCL 0.4 MG CAP.SR.24H PO SCH (22:18)
[2020-11-24] MEDS: ENOXAPARIN SODIUM 40 MG/0.4 ML DISP.SYRIN SQ SCH (22:24)
[2020-11-25] VITALS (7 sets, daily range): BP systolic 98–144; BP diastolic 61–72
[2020-11-25] MEDS: LEVOTHYROXINE SODIUM 50 MCG TABLET PO SCH (06:02)
[2020-11-25 07:22] LABS: EOSINOPHILS # (AUTO) 0.1 K/uL (0.0-0.7); EOSINOPHILS % (AUTO) 0.7 % (0.0-7.0); HEMATOCRIT 35.9 % (36.7-47.1); HEMOGLOBIN 12.1 g/dL (12.5-16.3); LYMPHOCYTES # (AUTO) 0.4 K/uL (20.0-40.0); LYMPHOCYTES % (AUTO) 4.9 % (20.5-51.5); MEAN CORPUSCULAR HEMOGLOBIN 29.3 uug (23.8-33.4); MEAN CORPUSCULAR HGB CONC 34 g/dL (32.5-36.3); MONOCYTES # (AUTO) 0.3 K/uL (2.0-10.0); MONOCYTES % (AUTO) 3.2 % (0.0-11.0); NEUTROPHILS # (AUTO) 8.2 K/uL (1.8-8.9); NEUTROPHILS % (AUTO) 91.2 % (38.5-71.5); PLATELET COUNT (AUTO) 258 K/uL (152-348); RED BLOOD CELL COUNT(AUTO) 4.12 MIL/uL (4.06-5.63)
[2020-11-25 07:58] LABS: BILIRUBIN,DIRECT 0.2 mg/dL (0.0-0.2); BILIRUBIN,TOTAL 0.4 mg/dL (0.2-1.0); CREATININE 1.2 mg/dL (0.6-1.3); POTASSIUM 3.8 mmol/L (3.5-5.1); TOTAL PROTEIN, SERUM 5.5 g/dL (6.4-8.2)
--- NOTE | 2020-11-25 08:00 | NUR ---
RECEIVED PATIENT IN BED AWAKE ALERT AND COOPERATIVE DENIES PAIN OR DISCOMFORTS AT THIS TIME.REMAIN ON O2 BY MASK AT 10 LITERS WITH NO SOB BREAKFAST SERVED AND HE IS ATTEMPTING TO EAT STATED STILL HAS NO APPETITE REMAIN ON COVID ISOLATION AND PRECAUTION CALL LIGHTS AND PERSONAL BELONGINGS ARE WITHIN EASY REACH AT THIS TIME WILL CONTINUE TO OBSERVE
[2020-11-25] MEDS: CARVEDILOL 12.5 MG TABLET PO SCH ×2 (08:10→17:08)
[2020-11-25] MEDS: ISOSORBIDE MONONITRATE 60 MG TAB.SR.24H PO SCH (08:10)
[2020-11-25] MEDS: CLOPIDOGREL 75 MG TABLET PO SCH (08:10)
--- NOTE | 2020-11-25 12:45 | NUR ---
SPECIMEN OBTAINED FOR THE NOVEL SCHRADER VIRUS AND SENT TO THE LAB AT THIS TIME
[2020-11-25] MEDS: DONEPEZIL 5 MG TABLET PO SCH (17:08)
--- NOTE | 2020-11-25 17:40 | NUR ---
DR PLATT HERE TO SEE AND EXAMINE PATIENT WITH NO NEW ORDERS AT THIS TIME.
[2020-11-25] MEDS: REMDESIVIR (CHARGED) 100 MG in IV NORMAL SALINE 230 ML IV SCH (17:46)
--- NOTE | 2020-11-25 17:46 | NUR ---
REMDESIVIR INFUSSION STARTED ORDERED WILL OBSERVE FOR ADVERSE OR ALLERGIC REACTIONS
--- NOTE | 2020-11-25 18:00 | NUR ---
VITALS CHECKED AND RECORDED WITH NO ADVERSE EFFECTS AT THIS TIME WILL CONTINUE TO OBSERVE
--- NOTE | 2020-11-25 18:46 | NUR ---
PATIENT SEEN BY DR AMAYA WITH NEW ORDERS AND NOTED.
--- NOTE | 2020-11-25 19:12 | NUR ---
REMDENZEVIR COMPLETED ORDERED WITH NO ADVERSE EFFECTS AT THIS TIME.
[2020-11-25] MEDS: ENOXAPARIN SODIUM 40 MG/0.4 ML DISP.SYRIN SQ SCH (20:55)
[2020-11-25] MEDS: TAMSULOSIN HCL 0.4 MG CAP.SR.24H PO SCH (20:55)
[2020-11-26] VITALS (7 sets, daily range): BP systolic 98–135; BP diastolic 57–72
--- NOTE | 2020-11-26 05:58 | NUR ---
PATIENT ALERT ORIENTED, NO SOB NO CHEST PAIN. PATIENT HAS NO COMPLAIN OF PAIN, USES URINAL FOR BLADDER ELIMINATIONS, PATIENT ON 10 LITER OXYGEN VIA MASK SATURATING BET 92 TO 97%. CALL LIGHT WITHIN REACH, CONT TO MONITOR.
[2020-11-26 06:01] LABS: BASOPHILS % (AUTO) 0.1 % (0.0-2.0); EOSINOPHILS # (AUTO) 0.1 K/uL (0.0-0.7); EOSINOPHILS % (AUTO) 1.1 % (0.0-7.0); HEMATOCRIT 34.6 % (36.7-47.1); LYMPHOCYTES # (AUTO) 0.4 K/uL (20.0-40.0); MEAN CORPUSCULAR HEMOGLOBIN 30.2 uug (23.8-33.4); MEAN CORPUSCULAR HGB CONC 35 g/dL (32.5-36.3); MEAN CORPUSCULAR VOLUME 87.1 fL (73.0-96.2); MONOCYTES # (AUTO) 0.3 K/uL (2.0-10.0); MONOCYTES % (AUTO) 5.1 % (0.0-11.0); NEUTROPHILS # (AUTO) 5.4 K/uL (1.8-8.9); NEUTROPHILS % (AUTO) 86.7 % (38.5-71.5); PLATELET COUNT (AUTO) 228 K/uL (152-348); RED BLOOD CELL COUNT(AUTO) 3.98 MIL/uL (4.06-5.63); WHITE BLOOD COUNT (AUTO) 6.2 K/uL (3.6-10.2)
[2020-11-26 06:20] LABS: BILIRUBIN,DIRECT 0.2 mg/dL (0.0-0.2); BILIRUBIN,TOTAL 0.5 mg/dL (0.2-1.0); CREATININE 1.3 mg/dL (0.6-1.3); MAGNESIUM 3.2 mg/dL (1.8-2.4); PHOSPHOROUS 3.2 mg/dL (2.5-4.9); POTASSIUM 3.4 mmol/L (3.5-5.1); TOTAL PROTEIN, SERUM 5.4 g/dL (6.4-8.2)
[2020-11-26] MEDS: LEVOTHYROXINE SODIUM 50 MCG TABLET PO SCH (07:33)
--- NOTE | 2020-11-26 08:30 | NUR ---
PATIENT IS AWAKE ALERT STATED FEELS MUCH BETTER TODAY HARD OF HEARING BUT IS ABLE TO CARRY ON CONVERSATION AND MAKE NEEDS KNOWN ON O2 BY MASK AT 5L/M WITH NO SHORTNESS OF BREATH AT THIS TIME REMAIN ON COVID ISOLATION AND PRECAUTION MID LINE IS INTACT WILL CONTINUE TO OBSERVE.
[2020-11-26] MEDS: CARVEDILOL 12.5 MG TABLET PO SCH ×2 (09:24→16:29)
[2020-11-26] MEDS: CLOPIDOGREL 75 MG TABLET PO SCH (09:24)
[2020-11-26] MEDS: ISOSORBIDE MONONITRATE 60 MG TAB.SR.24H PO SCH (09:24)
[2020-11-26] MEDS ORDERED: POTASSIUM CHLORIDE 20 MEQ TAB.PRT.SR PO ONE (09:45)
--- NOTE | 2020-11-26 10:30 | NUR ---
CALL RECEIVED FROM DR MAYES RE [facility] PLASMA ORDERED NOTIFIED HIM THAT HERLINDA THE DUPLICATION SPECIALIST OF THE LAB WAS HERE LAST NITE AND STATED THAT THEY ARE UNABLE TO RELEASE THE PLASMA PENDING DR VAUGHN FILLING UP THE NECESSARY FORMS AND HE STATED WILL CALL HERLINDA
--- NOTE | 2020-11-26 11:00 | NUR ---
POTASSIUM LEVEL IS 3.4 WITH ORDER TO REPLACE WITH 20 MEQ AND NOTED.
--- NOTE | 2020-11-26 13:00 | NUR ---
O2 SATS ON MASK AT 5L IS 99 PERCENT SO O2 CHANGED TO NASAL CANULA AT 3L/M WILL CONTINUE TO OBSERVE THE SATS NO SOB AT THIS TIME.
[2020-11-26] MEDS: REMDESIVIR (CHARGED) 100 MG in IV NORMAL SALINE 230 ML IV SCH (17:03)
[2020-11-26] MEDS: DONEPEZIL 5 MG TABLET PO SCH (17:03)
--- NOTE | 2020-11-26 18:10 | NUR ---
REMDESIVIR INFUSED ORDERED WITH NO ADVERSE OR ALLERGIC REACTIONS AT THIS TIME VITALS ARE STABLE
--- NOTE | 2020-11-26 19:00 | NUR ---
Received patient from AM nurse. Patient resting in bed. Pleasant man. Safety measures in place. Care plan initiated. Will monitor and assess.
[2020-11-26] MEDS: TAMSULOSIN HCL 0.4 MG CAP.SR.24H PO SCH (20:34)
[2020-11-26] MEDS: ENOXAPARIN SODIUM 40 MG/0.4 ML DISP.SYRIN SQ SCH (20:35)
[2020-11-27] MEDS: LEVOTHYROXINE SODIUM 50 MCG TABLET PO SCH (06:00)
[2020-11-27] MEDS: hydrALAZINE HCL 25 MG TABLET PO PRN (06:07)
[2020-11-27 06:32] VITALS: BP 118/68
[2020-11-27 07:23] LABS: CREATININE 1.2 mg/dL (0.6-1.3); POTASSIUM 3.5 mmol/L (3.5-5.1)
--- NOTE | 2020-11-27 08:00 | NUR ---
Pt alert and oriented x 4. Pt is in 2 liters o2. PT denies any c/o pain. Call light is within reach.
[2020-11-27] MEDS: CARVEDILOL 12.5 MG TABLET PO SCH ×2 (11:01→17:14)
[2020-11-27] MEDS: ISOSORBIDE MONONITRATE 60 MG TAB.SR.24H PO SCH (11:01)
[2020-11-27] MEDS: CLOPIDOGREL 75 MG TABLET PO SCH (11:10)
[2020-11-27 12:00] VITALS: BP 124/67
[2020-11-27] MEDS ORDERED: POTASSIUM CHLORIDE 20 MEQ TAB.PRT.SR PO ONE (12:15)
[2020-11-27 16:00] VITALS: BP 136/66
[2020-11-27] MEDS: DONEPEZIL 5 MG TABLET PO SCH (17:14)
--- NOTE | 2020-11-27 18:30 | NUR ---
pt tolerated physical therapy earlier in AM. denies any c/o sob and no c/o pain. Call light is within reach.
--- NOTE | 2020-11-27 19:00 | NUR ---
Received patient from AM nurse. Safety measures in place. Care plan initiated. Will monitor and assess.
--- NOTE | 2020-11-27 20:00 | NUR ---
Patient being weaned off O2 via NC. Now on 1L -- tolerating well - saturation at 98%.
[2020-11-27] MEDS: TAMSULOSIN HCL 0.4 MG CAP.SR.24H PO SCH (20:16)
[2020-11-27] MEDS: ENOXAPARIN SODIUM 40 MG/0.4 ML DISP.SYRIN SQ SCH (20:17)
[2020-11-27 21:11] VITALS: BP 110/62
--- NOTE | 2020-11-28 04:00 | NUR ---
Patient weaned off of Oxygen -- put on Room Air --- saturation at 97% Will monitor and assess.
[2020-11-28 05:26] VITALS: BP 154/74
[2020-11-28] MEDS: hydrALAZINE HCL 25 MG TABLET PO PRN (05:32)
[2020-11-28] MEDS: LEVOTHYROXINE SODIUM 50 MCG TABLET PO SCH (06:00)
--- NOTE | 2020-11-28 06:32 | NUR ---
Patient going to be handed off to AM nurse. VSS. Stable condition. Completely off Oxygen and saturating @ 96%. Safety measures in place. Care plan continued. Will monitor and assess.
[2020-11-28] MEDS: ISOSORBIDE MONONITRATE 60 MG TAB.SR.24H PO SCH (07:37)
[2020-11-28] MEDS: CLOPIDOGREL 75 MG TABLET PO SCH (07:37)
[2020-11-28] MEDS: CARVEDILOL 12.5 MG TABLET PO SCH ×2 (07:38→15:58)
[2020-11-28 11:32] VITALS: BP 104/52
--- NOTE | 2020-11-28 14:33 | NUR ---
pt desaturated to 82% on r/a at rest. Put pt back in 1 liter n/c now saturating 96%.
[2020-11-28 15:11] LABS: BASOPHILS % (AUTO) 0.5 % (0.0-2.0); EOSINOPHILS % (AUTO) 0.8 % (0.0-7.0); HEMATOCRIT 35.3 % (36.7-47.1); HEMOGLOBIN 11.9 g/dL (12.5-16.3); LYMPHOCYTES # (AUTO) 0.6 K/uL (20.0-40.0); LYMPHOCYTES % (AUTO) 9.6 % (20.5-51.5); MEAN CORPUSCULAR HEMOGLOBIN 29.5 uug (23.8-33.4); MEAN CORPUSCULAR HGB CONC 34 g/dL (32.5-36.3); MEAN CORPUSCULAR VOLUME 87.1 fL (73.0-96.2); MONOCYTES # (AUTO) 0.4 K/uL (2.0-10.0); MONOCYTES % (AUTO) 6.3 % (0.0-11.0); NEUTROPHILS % (AUTO) 82.8 % (38.5-71.5); PLATELET COUNT (AUTO) 231 K/uL (152-348); RED BLOOD CELL COUNT(AUTO) 4.05 MIL/uL (4.06-5.63)
[2020-11-28 15:44] VITALS: BP 120/69
[2020-11-28 15:44] LABS: BILIRUBIN,TOTAL 0.9 mg/dL (0.2-1.0); CREATININE 1.2 mg/dL (0.6-1.3); MAGNESIUM 2.3 mg/dL (1.8-2.4); PHOSPHOROUS 2.4 mg/dL (2.5-4.9); POTASSIUM 4.2 mmol/L (3.5-5.1); TOTAL PROTEIN, SERUM 5.5 g/dL (6.4-8.2)
[2020-11-28] MEDS: DONEPEZIL 5 MG TABLET PO SCH (15:58)
--- NOTE | 2020-11-28 16:00 | NUR ---
Communicated with nuha o2 not set up so d/c wont happen today. Nuha will attempt to set up 02 tank tomorrow.
[2020-11-28] MEDS: TAMSULOSIN HCL 0.4 MG CAP.SR.24H PO SCH (19:47)
[2020-11-28] MEDS: ENOXAPARIN SODIUM 40 MG/0.4 ML DISP.SYRIN SQ SCH (19:48)
[2020-11-28 20:05] VITALS: BP 135/65
--- NOTE | 2020-11-29 05:54 | NUR ---
Pt is in no acute distress. Call light is within reach. Pt denies any c/o pain.
[2020-11-29 05:57] VITALS: BP 154/75
[2020-11-29] MEDS: hydrALAZINE HCL 25 MG TABLET PO PRN (06:04)
[2020-11-29] MEDS: LEVOTHYROXINE SODIUM 50 MCG TABLET PO SCH (06:04)
[2020-11-29] MEDS: CARVEDILOL 12.5 MG TABLET PO SCH ×2 (08:53→16:50)
[2020-11-29] MEDS: CLOPIDOGREL 75 MG TABLET PO SCH (08:53)
[2020-11-29] MEDS: ISOSORBIDE MONONITRATE 60 MG TAB.SR.24H PO SCH (08:54)
--- NOTE | 2020-11-29 09:00 | NUR ---
AWAKE ALERT ORIENTED BUT IS HARD OF HEARING COOPERATIVE REMAINS ON O2 AT 1L/M BY NASAL CANULLA WITH NO SOB AT THIS TIME MID LINE LEFT ARM IS INTACT WITH NO S/S OF INFILTERATION AT THIS TIME CALL LIGHTS AND PERSONAL BELONGINGS ARE WITHIN EASY REACH NOT IN DISTRESS AT THIS TIME.
[2020-11-29 11:22] LABS: BASOPHILS % (AUTO) 0.8 % (0.0-2.0); EOSINOPHILS # (AUTO) 0.1 K/uL (0.0-0.7); EOSINOPHILS % (AUTO) 1.3 % (0.0-7.0); HEMATOCRIT 34.6 % (36.7-47.1); LYMPHOCYTES # (AUTO) 0.4 K/uL (20.0-40.0); LYMPHOCYTES % (AUTO) 9.3 % (20.5-51.5); MEAN CORPUSCULAR HEMOGLOBIN 29.8 uug (23.8-33.4); MEAN CORPUSCULAR HGB CONC 35 g/dL (32.5-36.3); MEAN CORPUSCULAR VOLUME 86.1 fL (73.0-96.2); MONOCYTES # (AUTO) 0.4 K/uL (2.0-10.0); MONOCYTES % (AUTO) 8.1 % (0.0-11.0); NEUTROPHILS # (AUTO) 3.8 K/uL (1.8-8.9); NEUTROPHILS % (AUTO) 80.5 % (38.5-71.5); PLATELET COUNT (AUTO) 198 K/uL (152-348); RED BLOOD CELL COUNT(AUTO) 4.03 MIL/uL (4.06-5.63); WHITE BLOOD COUNT (AUTO) 4.7 K/uL (3.6-10.2)
[2020-11-29 11:39] LABS: CREATININE 1.3 mg/dL (0.6-1.3); MAGNESIUM 2.3 mg/dL (1.8-2.4); PHOSPHOROUS 2.6 mg/dL (2.5-4.9); POTASSIUM 3.5 mmol/L (3.5-5.1)
[2020-11-29 12:00] VITALS: BP 115/57
--- NOTE | 2020-11-29 14:00 | NUR ---
DR MAYES HERE SEEN PATIENT WITH NO NEW ORDERS AT THIS TIME.
[2020-11-29 16:00] VITALS: BP 110/58
--- NOTE | 2020-11-29 17:00 | NUR ---
PATIENT SEEN AND EXAMINED BY DR PLATT WITH NEW ORDER FOR CXR IN AM AND NOTED.
[2020-11-29] MEDS: DONEPEZIL 5 MG TABLET PO SCH (17:07)
[2020-11-29] MEDS: TAMSULOSIN HCL 0.4 MG CAP.SR.24H PO SCH (20:12)
[2020-11-29 20:14] VITALS: BP 117/56
--- NOTE | 2020-11-29 21:00 | NUR ---
RECEIVED PATIENT IN BED AWAKE ALERT AND ORIENTED DENIES PAIN OR DISCOMFORTS AT THIS TIME REMAIN ON O2 AT 1L/M BY NASAL CANULLA WITH NO S/S OF SHORTNESS OF BREATH AT THIS TIME DUE MEDICATIONS GIVEN AND TAKEN WELL MADE COMFORTABLE NOT IN DISTRESS WILL CONTINUE TO OBSERVE.
--- NOTE | 2020-11-30 02:55 | NUR ---
CHECKED ON ROUNDS AND PATIENT IS COMFORTABLE WITH EYES CLOSED HE IS EASILY AROUSABLE DENIES DISCOMFORTS CONTINUE WITH O2 AT 1L/M BY NASAL CANULLA WITH NO SOB AT THIS TIME WILL CONTINUE TO OBSERVE.
[2020-11-30 04:48] VITALS: BP 144/81
--- NOTE | 2020-11-30 06:00 | NUR ---
RESTING DENIES DISCOMFORTS O2 REMAINS AT 1L/M WITH NO SOB AT THIS TIME
[2020-11-30] MEDS: LEVOTHYROXINE SODIUM 50 MCG TABLET PO SCH (06:10)
--- NOTE | 2020-11-30 07:45 | NUR ---
RECEIVED PATIENT IN BED, AWAKE AND AOX3, FORGETFUL BUT ABLE TO REORIENT PATENT. LEFT MIDLINE INTACT AND FLUSHING WELL. PATIENT DENIES SOB, OR CHEST PAIN AT THIS TIME. ALL NEEDS MET. SAFETY AND FALL PREVENTION IN PLACE. WILL CONTINUE TO MONITOR.
[2020-11-30] MEDS: ISOSORBIDE MONONITRATE 60 MG TAB.SR.24H PO SCH (08:33)
[2020-11-30] MEDS: CLOPIDOGREL 75 MG TABLET PO SCH (08:33)
[2020-11-30] MEDS: CARVEDILOL 12.5 MG TABLET PO SCH ×2 (08:34→16:56)
--- NOTE | 2020-11-30 10:24 | NUR ---
PATIENT O2 SATURATION ON ROOM AIR AT REST IS 86%. PATIENT PLACED BACK ON O2 ORDERED.
[2020-11-30 12:06] VITALS: BP 116/68
--- NOTE | 2020-11-30 12:21 | NUR ---
DISCHARGE UPDATE: NIKITA spoke with Melvina (daughter) ALESSIA ([phone]) and informed of the patient's discharge plan today. She is aware and agreeable.
--- NOTE | 2020-11-30 13:18 | NUR ---
DISCHARGE UPDATE/PHARMACOVIGILANCE SPECIALIST TIME: Ambulance transportation is arranged for the patient today at 5pm and this SW informed nurse Elle.
[2020-11-30] MEDS ORDERED: MULT-594 PO (13:51)
[2020-11-30] MEDS ORDERED: TAMS-3 PO (13:51)
[2020-11-30] MEDS ORDERED: CARV12.52 PO (13:51)
[2020-11-30] MEDS ORDERED: HYDR12.55 PO (13:51)
[2020-11-30] MEDS ORDERED: LEVO50TA8 PO (13:51)
[2020-11-30 16:56] VITALS: BP 128/62
[2020-11-30] MEDS: DONEPEZIL 5 MG TABLET PO SCH (16:56)
--- NOTE | 2020-11-30 17:22 | NUR ---
PATIENT DISCHARGED TO HOME WITH HOME HEALTH AND ON OXYGEN AT HOME. OXYGEN HAS BEEN ARRANGED PER [employer]. DISCHARGED INSTRUCTIONS WENT OVER WITH PATIENT AND TAKEN WITH PATIENT UPON DISCHARGE. PATIENT BELONGINGS LIST SIGNED. ALL BELONGINGS LEFT WITH PATIENT. PATIENT IN STABLE CONDITION UPON DC. VS STABLE. IV MIDLINE PULLED OUT AND ARM BAND TAKEN OFF. HOME HEALTH WAS ARRANGED BY [employer].
== END 2020-11-30 17:25 | disposition home health service (06) | DRG 177 ==
LOC: ER 15:25 → TRANSITION 17:21 → TELE3 11-15 01:45 → MEDSURG3 11-16 12:02
PROVIDERS: ADMIT Internal Medicine; ATTEND Internal Medicine
PROC: XW033E5 Introduction of Remdesivir Anti-infective into Peripheral Vein, Percutaneous Approach, New Technology Group 5 (ICD-10-PCS; principal; 2020-11-19)
PROC: 05HY33Z Insertion of Infusion Device into Upper Vein, Percutaneous Approach (ICD-10-PCS; 2020-11-25)
DX: U07.1 COVID-19 (principal); J12.89 Other viral pneumonia; J96.01 Acute respiratory failure with hypoxia; N17.0 Acute kidney failure with tubular necrosis; I21.A1 Myocardial infarction type 2; E43 Unspecified severe protein-calorie malnutrition; G92 Toxic encephalopathy; K85.90 Acute pancreatitis without necrosis or infection, unspecified; D68.59 Other primary thrombophilia; I13.0 Hypertensive heart and chronic kidney disease with heart failure and stage 1 through stage 4 chronic kidney disease, or unspecified chronic kidney disease; J90 Pleural effusion, not elsewhere classified; E11.22 Type 2 diabetes mellitus with diabetic chronic kidney disease; Z95.0 Presence of cardiac pacemaker; N40.0 Benign prostatic hyperplasia without lower urinary tract symptoms; N18.9 Chronic kidney disease, unspecified; I50.9 Heart failure, unspecified; Z79.84 Long term (current) use of oral hypoglycemic drugs; Z79.02 Long term (current) use of antithrombotics/antiplatelets; Z79.899 Other long term (current) drug therapy; I25.10 Atherosclerotic heart disease of native coronary artery without angina pectoris; Z79.01 Long term (current) use of anticoagulants; N13.9 Obstructive and reflux uropathy, unspecified; I70.0 Atherosclerosis of aorta; E11.65 Type 2 diabetes mellitus with hyperglycemia; E66.9 Obesity, unspecified; Z68.27 Body mass index [BMI] 27.0-27.9, adult; R74.01 Elevation of levels of liver transaminase levels; E87.6 Hypokalemia; Z74.09 Other reduced mobility; M19.90 Unspecified osteoarthritis, unspecified site; M81.0 Age-related osteoporosis without current pathological fracture; Z79.890 Hormone replacement therapy; D64.9 Anemia, unspecified; E05.90 Thyrotoxicosis, unspecified without thyrotoxic crisis or storm; I48.91 Unspecified atrial fibrillation
CPT/HCPCS: 36415; 70030-TC; 71045; 76705; 83605; 83615; 83690; 83735; 83970; 84100; 84155; 84156; 84165; 84300; 84443; 85025; 85610; 85730; 86140; 86850; 86900; 86901; 87040; 93005; A4663; G0378; J0456; J0696; J1100; J1650; J1940; J2060; J2543; J3480; J7040; J7050; J7060; J7070; Q0144; U0003